=== PATIENT | male | born 1975 | race Caucasian/White ===

== ENCOUNTER 2018-01-16 08:50 | Emergency (ER) | payer SELFPAY ==
[2018-01-16 09:02] VITALS: BP 128/79; PULSE 65; TEMP 98.9; BMI 31.6
--- NOTE | 2018-01-16 10:16 | PDOC ---
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 Denies any injury. Patient reports history of low back pain but never pain that radiates testicle. Denies any radiating pain down leg, no neurosensory deficits, no foot drop or saddle anesthesia. Past Medical History: [Denies]. Allergies: No known allergies Medications: None Family History: Non-contributory Social History: Denies smoking, alcohol use, or IVDU Review of Systems GENERAL/CONSTITUTIONAL: [No fever or chills. No weakness. No weight change.] HEAD, EYES, EARS, NOSE AND THROAT: [No change in vision. No ear pain or discharge. No sore throat. ] CARDIOVASCULAR: [No chest pain or shortness of breath.] RESPIRATORY: [No cough, wheezing, or hemoptysis.] GASTROINTESTINAL: [No nausea, vomiting, diarrhea or constipation. No rectal bleeding.] GENITOURINARY: [No dysuria, frequency, or change in urination.] MUSCULOSKELETAL: [No joint or muscle swelling or pain. No neck or back pain.] SKIN AND BREASTS: [No rash or easy bruising.] NEUROLOGIC: [No headache, vertigo, loss of consciousness, or loss of sensation.] PSYCHIATRIC: [No depression or anxiety.] ENDOCRINE: [No increased thirst. No abnormal weight change.] HEMATOLOGIC/LYMPHATIC: [No anemia, easy bleeding, or history of blood clots.] ALLERGIC/IMMUNOLOGIC: [No hives or skin allergy. No latex allergy.] Physical Exam: GENERAL: [The patient is awake, alert, and fully oriented, in no acute distress. ] HEAD: [Normal with no signs of trauma.] EYES: [Pupils equal, round and reactive to light, extraocular movements intact, sclera anicteric, conjunctiva clear.] ENT: [Ears normal, nares patent, oropharynx clear without exudates. Moist mucous membranes. No uvula deviation] NECK: [Normal range of motion, supple without lymphadenopathy, JVD, or masses.] LUNGS: [Breath sounds equal, clear to auscultation bilaterally. No wheezes, and no crackles.] HEART: [Regular rate and rhythm, normal S1 and S2 without murmur, rub or gallop. ] ABDOMEN: [Soft, nontender, normoactive bowel sounds. No guarding, no rebound. No masses. No bruising or abrasions] GENITALIA: Good cremasteric reflex, pain to right testicle on palpation. MUSCULOSKELETAL: [Normal range of motion, no edema. No clubbing or cyanosis. No cords, erythema, or tenderness. No CVA Tenderness with fist palpation, there is pain noted to right lateral lower back SI Joint.] NEUROLOGICAL: [Cranial nerves II through XII grossly intact. Normal speech, normal gait.] SKIN: [Warm, Dry, normal turgor, no rashes or lesions noted.] 01/16/18 11:54 Past History - Past Medical History Allergies/Adverse Reactions: Allergies Allergy/AdvReac Type Severity Reaction Status Date / Time No Known Allergies Allergy Verified 01/16/18 09:02 Home Medications: Ambulatory Orders Cyclobenzaprine HCl [Flexeril 10 mg] 10 mg PO BID PRN #20 tablet 01/16/18 Methylprednisolone [Medrol Dose Toñito] 4 mg PO ASDIR #21 tablet 01/16/18 COPD: No - Suicide/Smoking/Psychosocial Hx Smoking History: Current some day smoker Have you smoked in the past 12 months: No Number of Cigarettes Smoked Daily: 1 Information on smoking cessation initiated: No Hx Alcohol Use: No Drug/Substance Use Hx: No Substance Use Type: Alcohol *Physical Exam - Vital Signs Last Vital Signs Temp Pulse Resp BP Pulse Ox 98.9 F 65 16 128/79 100 01/16/18 08:59 01/16/18 08:59 01/16/18 08:59 01/16/18 08:59 01/16/18 08:59 Medical Decision Making - Medical Decision Making 01/16/18 11:58 A/P: Patient with lower back pain and right testicular pain, most likely dermatomal however perform ultrasound of right testicle rule out torsion, urinalysis, gonorrhea Chlamydia, awaiting ultrasound results and will treat with Toradol 01/16/18 13:41 Laboratory Results - last 24 hr 01/16/18 10:40 Urine Color Yellow Urine Appearance Clear Urine pH 7.0 Ur Specific [place] 1.020 Urine Protein Negative Urine Glucose (UA) Negative Urine Ketones Negative Urine Blood Negative Urine Nitrite Negative Urine Bilirubin Negative Urine Urobilinogen 4.0 e.u/dl Ur Leukocyte Esterase Negative Scrotal ultrasound with small right side of her Percocet otherwise unremarkable no evidence of torsion. Urinalysis is unremarkable. Toradol given will reevaluate also ordered Valium 5 mg by mouth 01/16/18 16:42 Patient made aware in Uzbek of results, instructions for follow-up, and medications prescribed. He verbalized understanding will follow-up as instructed. *DC/Admit/Observation/Transfer Diagnosis at time of Disposition: Low back pain Qualifiers: Chronicity: acute Back pain laterality: right Sciatica presence: without sciatica Qualified Code(s): M54.5 - Low back pain - Discharge Dispostion Disposition: HOME Condition at time of disposition: Stable Admit: No - Prescriptions Prescriptions: Cyclobenzaprine HCl [Flexeril 10 mg] 10 mg PO BID PRN #20 tablet PRN Reason: Pain Methylprednisolone [Medrol Dose Toñito] 4 mg PO ASDIR #21 tablet - Referrals Referrals: Alpesh Choe MD [Staff Physician] - Naresh Espinoza MD [Staff Physician] - - Patient Instructions Printed Discharge Instructions: DI for Low Back Pain Additional Instructions: 1. Please return to the emergency department with any numbness, tingling, weakness, numbness or tingling to groin or legs, or loss of bowel or bladder function. 2. Use pain medication as ordered. 3. Please is to followup in the office of Dr. Choe for evaluation within a week if no improvement. 4. Ice or heat 5. Refrain from lifting anything above 10 pounds, until pain resolved. You have a varicocele, if pain persists or swelling to testicle follow up with urology. 1. Regrese al servicio de urgencias con cualquier entumecimiento, hormigueo, debilidad, entumecimiento u hormigueo en la db o las piernas, o la prdida de la funcin intestinal o de la vejiga. 2. Use medicamento para el dolor segn lo ordenado. 3. Por favor, liliana un seguimiento en la oficina del Dr. Choe para kaykay evaluaci n dentro de kaykay semana si no mejora. 4. Hielo o calor 5. Abstngase de levantar algo que pese ms de 10 libras hasta que desaparezca el dolor. Usted tiene un varicocele, si el dolor persiste o hinchazn en el seguimiento de los testculos con urologa. - Post Discharge Activity Forms/Work/School Notes: Back to Work
[2018-01-16 11:03] LABS: URINE APPEARANCE CLEAR; URINE BILIRUBIN NEGATIVE (<2.0 mg/dL); URINE BLOOD NEGATIVE (NEGATIVE); URINE COLOR YELLOW; URINE GLUCOSE (UA) NEGATIVE (NEGATIVE); URINE KETONE NEGATIVE (NEGATIVE); URINE LEUK ESTERASE NEGATIVE (NEGATIVE); URINE NITRITE NEGATIVE (NEGATIVE); URINE PROTEIN NEGATIVE (NEGATIVE); URINE UROBILINOGEN 4.0 E.U/dl mg/dL (0.2-1.0)
[2018-01-16] MEDS ORDERED: KETOROLAC TROMETHAMINE 60 MG/2 ML VIAL IM ONE (12:48)
[2018-01-16] MEDS ORDERED: KETOROLAC TROMETHAMINE 60 MG/2 ML VIAL ONE (13:16)
[2018-01-16] MEDS ORDERED: diazePAM 5 MG TABLET PO ONE (13:21)
[2018-01-16] MEDS ORDERED: diazePAM 5 MG TABLET ONE (13:25)
== END 2018-01-16 14:20 | disposition home or self-care (01) ==
LOC: JERFT 08:50
PROC: 3E0233Z Introduction of Anti-inflammatory into Muscle, Percutaneous Approach (ICD-10-PCS; principal; 2018-01-16)
DX: M54.5 Low back pain (principal)
CPT/HCPCS: 36415; 76870-TC; 81003; 87086; 87491; 87591; 99281-25